=== PATIENT | female | born 1995 | race Caucasian/White ===

== ENCOUNTER 2018-05-03 20:38 | Observation (INO) ==
--- NOTE | 2018-05-03 21:19 | Emergency Department Note ---
Disposition Clinical Impression: Vaginal bleeding, 12 weeks gestation of , Placental abruption in second trimester Disposition: Admitted As Inpatient Condition: Undetermined Referrals: Krissy Rushing DO [Primary Care Provider] - Forms: ED Satisfaction Letter Time of Disposition: 23:21 HPI - General Chief complaint: ED Vaginal Bleeding Stated complaint: "bleeding 17 weeks preg" Time Seen by Provider: 05/03/18 20:57 Source: patient Mode of arrival: ambulatory Limitations: no limitations Nursing Notes Reviewed: Yes Vital Signs Reviewed: Yes - History of Present Illness HPI Narrative: 23-year-old female at 17 weeks gestational , arrives to the emergency Department complaint of bleeding. The patient states that she is unsure if it is coming from her rectum or her vagina. The patient states that she had a previous vaginal bleed during last . She is very concerned. She denies any new abdominal pain or cramping. Patient is resting comfortably in the room at this time. The patient denies any vaginal discharge , hematuria, dysuria. She is complaining of no other complaints at this time. - Related Data Home Medications Medication Instructions Recorded Confirmed Dextroamphetamine/Amphetamine 5 mg PO BID 08/15/16 11/25/16 [Adderall 5 mg Tablet] Norgestimate-Ethinyl Estradiol 1 tab PO DAILY 08/15/16 11/25/16 [Sprintec 28 Day Tablet] Loratadine 05/04/17 Omeprazole 05/04/17 05/04/17 Ventolin Hfa 05/04/17 Previous Rx's Medication Instructions Recorded Promethazine [Phenergan] 25 mg PO Q6HR PRN #10 tablet 01/13/18 Allergies Allergy/AdvReac Type Severity Reaction Status Date / Time No Known Allergies Allergy Verified 02/10/18 16:31 All systems ED: reviewed and negative except as stated. 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: Reports: No TYPEWRITER RIBBON WINDER History LMP comments: - Social History Smoking Status: Never smoker Alcohol use: Reports: none Drug use: Reports: none Physical Exam - General Limitations: no limitations General appearance: alert, in no apparent distress - Head Head exam: atraumatic, normocephalic, normal inspection - Eye Eye exam: Present: normal appearance, PERRL, EOMI - ENT ENT exam: normal exam, normal oropharynx, mucous membranes moist - Neck Neck exam: Present: normal inspection, full ROM, trachea midline - Chest Chest inspection: Present: normal inspection, symmetric chest wall rise - Respiratory Respiratory exam: Absent: respiratory distress - Cardiovascular Cardiovascular exam: Present: regular rate - Abdominal Exam Abdominal exam: Present: soft, Non-Tender. Absent: tenderness, distention, guarding, rebound, rigidity - Female Mechanical Fitter present during exam: Yes External Exam: Present: normal external exam Speculum Exam: Present: normal speculum exam, cervical OS closed, other (Brown clot noted on speculum. Non active bleeding noted or blood noted on examination.). Absent: vaginal discharge, cervical discharge, vaginal bleeding - Extremities Exam Extremities exam: Present: normal inspection, full ROM. Absent: tenderness, pedal edema - Neurological Exam Neurological exam: Present: alert, oriented X3 - Skin Skin exam: Present: warm, dry, intact, normal color Course - Consultations Consultation #1: Patient's ultrasound demonstrates findings concerning for placental abruption. We spoke to TYPEWRITER RIBBON WINDER, Shahnaz, who stated that she will talk with her attending and likely admit the patient to the hospital for further workup and care. The patient was notified and understands circumstances. The patient still is not complaining of any abdominal pain. Time: 23:02 Vital Signs Temperature 98.2 F 05/03/18 20:44 Pulse Rate 94 05/03/18 20:44 Respiratory Rate 16 05/03/18 20:44 Blood Pressure 127/84 05/03/18 20:44 O2 Sat by Pulse Oximetry 98 05/03/18 20:44 Temperature 98.2 F 05/03/18 20:44 Pulse Rate 87 05/03/18 22:43 Respiratory Rate 18 05/03/18 22:43 Blood Pressure 134/57 05/03/18 22:43 O2 Sat by Pulse Oximetry 96 05/03/18 22:43 Oxygen Delivery Oxygen Delivery Room Air OB/Uterine Contractions - Lab Data Lab Results 05/03/18 Range/Units 22:52 Urine Color Yellow (Yellow) Urine Clarity Clear (Clear) Urine pH 6.5 (5.0-8.0) pH Units Ur Specific [place] 1.024 (1.010-1.025) Urine Protein Negative (Neg-Trace) mg/dL Urine Glucose (UA) Normal (Normal) mg/dL Urine Ketones Negative (Negative) mg/dL Urine Blood Trace H (Negative) Urine Nitrite Negative (Negative) Urine Bilirubin Negative (Negative) Urine Urobilinogen Normal (Normal) mg/dL Ur Leukocyte Esterase Negative (Negative) Urine Microscopic RBC 0-3 (0-3) per hpf Urine Microscopic WBC 0-3 (0-3) per hpf Ur Squamous Epith Cells Many H (None-Few) per lpf Urine Bacteria None Seen (None-Few) per hpf Hyaline Casts None Seen (None-Few) per lpf Ur Culture Indicated? NO (NO) Critical Care Time Critical Care Time: No
--- NOTE | 2018-05-03 21:20 | Emergency Department Note ---
START Narrative - START START: I examined this patient and my medical decision-making was reviewed with the Resident Physician. I agree with the documented findings, disposition and treatment plan as described except to the extent set forth below. 23-year-old female presents emergency room for vaginal bleeding versus rectal bleeding. She states she is currently 17 weeks . This is her third with 2 children at home. She admits to bright red blood while sitting on the toilet today and wiping. She did not think it was from the rectum but is unsure. She was concerned with her . She denies abdominal pain. No vaginal discharge. No back pain. No fevers. No other complaints. She denies trauma. Plan: We will do a full pelvic exam to look for blood. If positive. Patient will need a pelvic ultrasound. If negative, this was likely from the rectum as she does have a history of hemorrhoids. She is hemodynamic stable. Looks well. Nontoxic appearing.
[2018-05-03 23:04] LABS: Bilirubin,Urine Negative (Negative); Blood,Urine Trace (Negative); Clarity,Urine Clear (Clear); Color,Urine Yellow (Yellow); Glucose,Urine (UA) Normal (Normal); Ketones,Urine Negative (Negative); Leukocyte Esterase,Urine Negative (Negative); Nitrite,Urine Negative (Negative); PH,Urine 6.5 pH Units (5.0-8.0); Protein,Urine Negative (Neg-Trace); Specific Gravity,Urine 1.024 (1.010-1.025); Urobilinogen,Urine Normal (Normal)
[2018-05-03 23:07] LABS: Bacteria,Urine None Seen per hpf (None-Few); Hyaline Casts,Urine None Seen per lpf (None-Few); RBC,Urine 0-3 per hpf (0-3); Squamous Epithelial Cell,Urine Many per lpf (None-Few); WBC,Urine 0-3 per hpf (0-3)
[2018-05-04 04:43] LABS: Basophils % 0.3 %; Eosinophils # 0.1 K/mcL (0.0-0.6); Eosinophils % 1.1 %; Hematocrit 33.8 % (35.3-44.9); Hemoglobin 11.2 g/dL (11.5-15.4); Immature Granulocytes % 0.2 % (0-4); Lymphocytes # 2.9 K/mcL (0.6-4.6); Lymphocytes % 29.6 %; Mean Corpuscular HGB Conc 33.1 g/dL (31.6-35.5); Mean Corpuscular Hemoglobin 29.1 pg (28.0-33.3); Mean Corpuscular Volume 87.8 fL (83.0-100.0); Mean Platelet Volume 12.1 fL (9.4-12.4); Monocytes # 0.6 K/mcL (0.0-1.3); Neutrophils # 6.2 K/mcL (1.6-8.9); Platelet Count 177 K/mcL (140-400); Red Blood Count 3.85 M/mcL (3.82-4.97); Red Cell Distribution Width 13.8 % (11.5-14.5); Segmented Neutrophils % 62.8 %
[2018-05-04 07:58] VITALS: BP 105/72
--- NOTE | 2018-05-04 08:29 | Discharge Summary ---
Date of Encounter: 05/04/18 Time of Encounter: 08:30 - Discharge Diagnosis (1) 18 weeks gestation of Priority: Primary Status: Acute (2) Placental abruption in second trimester Priority: Primary Status: Acute Comments: Pt with thus far uncomplicated presented with vaginal bleeding like a period when she voided. No recent trauma or SI. She had scant spotting once first trimester, but none since then. U/S last evening showed no previa but two small separations c/w marginal abruption. Bleeding has now stopped and her abdomen is nonh-tender. 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 I advised off work today and tomorrow then she may return per her request on light duty and Thursday. She should call for worsening pain or bleeding. - Discharge Medications Home Medications: Loratadine 1 tab PO DAILY 05/04/17 [History] Omeprazole 40 mg PO DAILY 05/04/17 [History] Promethazine [Phenergan] 25 mg PO Q6HR PRN #10 tablet 01/13/18 [Rx] Vit #49/Iron Fum/FA [Mini Tablet] 1 tab PO DAILY 05/04/18 [ History] Allergies/Adverse Reactions: 3 Allergy/AdvReac Type Severity Reaction Status Date / Time No Known Allergies Allergy Verified 02/10/18 16:31 Data Procedures and tests throughout hospitalization: Laboratory Tests 05/04/18 04:18 WBC 9.9 RBC 3.85 Hgb 11.2 L Hct 33.8 L MCV 87.8 MCH 29.1 MCHC 33.1 RDW 13.8 Plt Count 177 MPV 12.1 Immature Gran % 0.2 Seg Neutrophils % 62.8 Lymphocytes % 29.6 Monocytes % 6.0 Eosinophils % 1.1 Basophils % 0.3 Neutrophils # 6.2 Lymphocytes # 2.9 Monocytes # 0.6 Eosinophils # 0.1 Basophils # 0.0 Labs on day of discharge: Labs from last 24 hours 05/04/18 04:18 WBC 9.9 RBC 3.85 Hgb 11.2 L Hct 33.8 L MCV 87.8 MCH 29.1 MCHC 33.1 RDW 13.8 Plt Count 177 MPV 12.1 Immature Gran % 0.2 Seg Neutrophils % 62.8 Lymphocytes % 29.6 Monocytes % 6.0 Eosinophils % 1.1 Basophils % 0.3 Neutrophils # 6.2 Lymphocytes # 2.9 Monocytes # 0.6 Eosinophils # 0.1 Basophils # 0.0 - Impressions vaginal bleeding 18 weeks EGA - Additional Comments Pt doing well without abdominal pain and only scant bleeding this morning. Date of admission: 05/03/18 23:50 Primary care physician: Weston Yeager - Patient Status Disposition: Home, Self-Care Condition: Good Functional capacity at discharge: independent ambulation Overall status at discharge: patient is progressing back to baseline - Discharge Instructions Follow Up With: Jean-Pierre Rooney DO [Partnered Physician] - Additional Instructions: Pt to be off of work today and tomorrow and light duty until seen by Dr. Rooney on Thursday. She should call for worsening pain or heavier bleeding. She should have u/s to check placenta with visit on Thursday. Hospital Course MECHANICAL METER TESTER Time Attestation: Total time spent providing and/or coordinating discharge services: Exam - Constitutional Vitals: Temp Pulse Resp BP Pulse Ox 98.4 F 85 16 105/72 99 05/04/18 07:57 05/04/18 07:57 05/04/18 07:57 05/04/18 07:57 05/04/18 07:57 General appearance IM: A&O X 3, no acute distress - Respiratory Respiratory exam: Present: CTAB - Cardiovascular Cardiovascular exam IM: Present: RRR - GI/Abdominal GI/Abdominal exam IM: normal bowel sounds - Other Additional findings: Abdomen non-tender - VTE Reasons for not Prescribing Prophylaxis: Treatment not Indicated - Low risk for VTE
== END 2018-05-04 09:30 | disposition home or self-care (01) ==
LOC: EMEROO 20:38 → 1NENUOBS 20:38
PROVIDERS: ADMIT Advanced Practice Midwife; ATTEND Advanced Practice Midwife

== ENCOUNTER 2018-10-06 08:00 | Inpatient (IN) ==
[2018-10-06] MEDS ORDERED: Metoclopramide 10 MG/2 ML VIAL IVP PRN (08:09)
[2018-10-06] MEDS ORDERED: Lidocaine 1% 20 ML MDV ID PRN (08:09)
[2018-10-06] MEDS ORDERED: *HR* Nalbuphine 10 MG/ML AMPUL IVP PRN (08:09)
[2018-10-06] MEDS ORDERED: Ondansetron 4 MG/2 ML VIAL IVP PRN (08:09)
[2018-10-06] MEDS ORDERED: Naloxone 0.4 MG/ML INJ IVP PRN (08:09)
[2018-10-06] MEDS ORDERED: Famotidine 20 MG/2 ML VIAL IVP PRN (08:09)
[2018-10-06] MEDS ORDERED: miSOPROStol 25 MCG TABLET VG ONE (08:20)
[2018-10-06 09:28] LABS: Basophils % 0.2 %; Eosinophils # 0.1 K/mcL (0.0-0.6); Eosinophils % 0.8 %; Hematocrit 33.6 % (35.3-44.9); Hemoglobin 10.9 g/dL (11.5-15.4); Immature Granulocytes % 0.2 % (0-4); Lymphocytes # 1.7 K/mcL (0.6-4.6); Lymphocytes % 20.8 %; Mean Corpuscular HGB Conc 32.4 g/dL (31.6-35.5); Mean Corpuscular Hemoglobin 27.5 pg (28.0-33.3); Mean Corpuscular Volume 84.8 fL (83.0-100.0); Mean Platelet Volume 12.7 fL (9.4-12.4); Monocytes # 0.4 K/mcL (0.0-1.3); Monocytes % 4.8 %; Neutrophils # 6.1 K/mcL (1.6-8.9); Platelet Count 177 K/mcL (140-400); Red Blood Count 3.96 M/mcL (3.82-4.97); Red Cell Distribution Width 14.9 % (11.5-14.5); Segmented Neutrophils % 73.2 %
[2018-10-06] MEDS: Ringers Solution, Lactated 1,000 ML IVC SCH ×2 (09:44→14:03)
[2018-10-06] MEDS ORDERED: Oxytocin 20 units/ LR 1000 mL 20 UNIT/1,000 ML BAG IVC SCH ×2 (09:45→18:53)
[2018-10-06 09:48] LABS: Amphetamine Screen,Urine Negative ng/mL (Cutoff=1000); Barbiturate Screen,Urine Negative ng/mL (Cutoff=200); Benzodiazepines Screen,Urine Negative ng/mL (Cutoff=200); Cannabinoid Screen,Urine Negative ng/mL (Cutoff = 50); Cocaine Screen,Urine Negative ng/mL (Cutoff= 300); Opiate Screen,Urine Negative ng/mL (Cutoff=300); Phencyclidine Screen,Urine Negative ng/mL (Cutoff=25)
--- NOTE | 2018-10-06 10:11 | Anesthesia Evaluation PreOp ---
Date of Encounter: 10/06/18 Time of Encounter: 10:09 - Past History Planned Operation: avery Cardiac History: Denies any Significant Hx Pulmonary History: Asthma PURCHASING ASSISTANT History: Denies Any Significant HX Other Medical History: GERD, Other (sepression,anxiety, narcolepsy) Anesthesia History: No Prior Anesthetic Complications, Past Anesthesia (CLEx2, abdulaziz, Knee x2, BMT) : Yes Test: Positive Alcohol Use: none Drug use: none Medications and Allergies Loratadine 1 tab PO DAILY 05/04/17 [History] Omeprazole 40 mg PO DAILY 05/04/17 [History] Vit #49/Iron Fum/FA [Mini Tablet] 1 tab PO DAILY 05/04/18 [History] Allergy/AdvReac Type Severity Reaction Status Date / Time No Known Allergies Allergy Verified 02/10/18 16:31 - Meds/Allergy Pre-op Review Medications Reviewed: Yes Allergies Reviewed: Yes Beta Blockers on Current Med List: No Anesthesia Results - Labs 10/06/18 09:05 Anesthesia Exam 120/75 89 16 fht 136 Height: 5'5" Weight: 105 k NPO (# of Hours): 2 Pain Scale: 3 Pain Scale Used: Numeric (1 - 10) - HEENT Pupil (Motor): Pupils equal Mallampati: II Teeth: Normal Oral Opening: Greater than 3 - PURCHASING ASSISTANT LOC: Oriented PURCHASING ASSISTANT Motor: Normal RUE, Normal LUE, Normal RLE, Normal LLE, Normal Face PURCHASING ASSISTANT Sensory: Normal: RUE, LUE, RLE, LLE, Face - Cardiac Rhythm: Regular Murmur: None - Pulmonary Breath Sounds: bilateral Clear Respiratory Effort: Symmetrical Anesthesia Assess/Plan ASA Score: 2 Level of consciousness: Cooperative Anesthetic Plan: Epidural Autologous Blood: No Monitoring Plan: Standard Monitors Recovery Plan: Other (risks discussed, questions answered, consented)
[2018-10-06] MEDS ORDERED: *HR* FentaNYL (PF) 100 MCG/2 ML VIAL EP ONE (10:13)
[2018-10-06] MEDS ORDERED: *HR* Ropivacaine/PF 0.2% 20 ML VIAL EP ONE (10:13)
[2018-10-06] MEDS ORDERED: Epidural Premix (fent/bupiv) 110 ML EP SCH (10:15)
--- NOTE | 2018-10-06 10:26 | OB/GYN History & Physical ---
Date of Encounter: 10/06/18 Time of Encounter: 09:56 Assessment and Plan (1) 39 weeks gestation of Current visit: Yes Status: Acute (2) Type O blood, Rh positive Current visit: Yes Status: Acute (3) Intrauterine Current visit: Yes Status: Acute Admit to L&D for induction of labor Start Pitocin and increased per policy to adequate contraction pattern Labs-CBC and clot to hold Continuous electronic monitoring Pain management plan is epidural-may have upon request GBS negative-no prophylaxis needed Anticipate vaginal delivery Dr. Robertson is OB on-call and is available as needed (4) Intact amniotic membranes during in third trimester Current visit: Yes Status: Acute History of Present Illness Chief complaint: elective iol HPI: Ms. Aguirre is a 23 year old female at 39 weeks 4 days gestation with an estimated date of 10/09/18 dated by LMP. She presents for planned elective induction of labor. Her has been uncomplicated. She is followed by Dr. Rooney. records are available electronically and have been reviewed. Labs: O+ GBS- HIV- Hep B- T. Palladium - GC/CL- Rubella immune Varicella immune Past Med Surg Social Fam HX - Past Medical History Medical history: asthma, GERD Additional medical history: Narcolepsy Psychiatric history: anxiety, depression - Past Surgical History Surgical History: cholecystectomy Additional surgical history: Right and left knee scopes 2009. BMT 2010 - Social History Smoking Status: Never smoker Smokeless Tobacco Status: No Alcohol use: none Drug use: none - Family History Mother Living Status: Still Living Hx Family Cardiac Disorders: Yes (HTN) Hx Family Respiratory Disorders: Yes (Sleep Apnea) Obstetrical History - Pregnancies : 3 Para: 2 Term: 2 ( # 1: vaginal delivery, full term,male, 8lbs 2 oz, Ryan; # 2: JULY 08, 2014 8LBS 1OZ VAGINAL DELIVERY DAISY DELIVERED) : 0 Ab's: 0 Livin Medications and Allergies Loratadine 1 tab PO DAILY 05/04/17 [History] Omeprazole 40 mg PO DAILY 05/04/17 [History] Vit #49/Iron Fum/FA [Mini Tablet] 1 tab PO DAILY 05/04/18 [History] Allergy/AdvReac Type Severity Reaction Status Date / Time No Known Allergies Allergy Verified 02/10/18 16:31 Review of System OB All systems PM: reviewed and no additional remarkable complaints except as stated Exam - Constitutional Constitutional: well developed, well nourished, no acute distress, average body habitus - HEENT HEENT: Normocephaly, Mucus Membranes Moist - Neck Neck exam: full ROM - Lungs Respiratory exam: CTAB - Cardiovascular Cardiovascular exam: RRR, +S1, +S2 - Breasts Breast: bilateral: normal - Abdomen Abdomen: Present: bowel sounds normal, gravid, non tender - Extremities Extremities exam: normal capillary refill, normal inspection, radial pulses palpable and symmetrical - Vulva Vulva: bilateral: normal - Vagina Vagina: Present: normal moisture - Cervix Dilation: 4 Effacement: 70 Station: -2 - Uterus Uterus exam: Present: normal size, normal contour - Adnexa Adnexa: bilateral: normal - Anus/Rectum Anus/Rectum: Present: normal perianal skin Results Result Diagrams: 10/06/18 09:05 Abnormal lab results Hgb 10.9 g/dL (11.5-15.4) L 10/06/18 09:05 Hct 33.6 % (35.3-44.9) L 10/06/18 09:05 MCH 27.5 pg (28.0-33.3) L 10/06/18 09:05 RDW 14.9 % (11.5-14.5) H 10/06/18 09:05 MPV 12.7 fL (9.4-12.4) H 10/06/18 09:05 All other labs normal. - VTE Reasons for not Prescribing Prophylaxis: Treatment not Indicated - Low risk for VTE
--- NOTE | 2018-10-06 13:23 | OB Labor Progress Note ---
Date of Encounter: 10/06/18 Time of Encounter: 13:21 Labor Progress Note - Subjective Subjective: Rates contractions /10. - Cervix Cervix: 6/70/-2 - Heart Tones Heart Tones: Baseline 125 Moderate variability Accelerations present 15x15 No decelerations FHR Category I - [place]: Contractions every 2-3 minutes and palpate strong - Interventions Interventions: SVE - Plan Plan: Continue IOL management Continue pitocin augmentation May have epidural upon request Anticipate POC per consult with Dr. Robertson
[2018-10-06] MEDS ORDERED: *HR* FentaNYL (PF) 100 MCG/2 ML VIAL ONE (13:38)
[2018-10-06] MEDS ORDERED: Lidocaine -MPF 2% 5 ML VIAL ONE (13:38)
[2018-10-06] MEDS ORDERED: *HR* Ropivacaine/PF 0.2% 20 ML VIAL ONE (13:38)
--- NOTE | 2018-10-06 14:05 | Anesthesia Procedures ---
Addendum entered and electronically signed by Luis Armando Bridges CRNA 10/06/18 18:23: Infant Delivery Date: 10/06/18 Delivery Time: 15:59 Original Note: Date of Encounter: 10/06/18 Time of Encounter: 14:03 Procedures: Anesthesia - Epidural/Spinal Patient ID/Chart reviewed: Yes Patient examined: Yes OB Eval: Gestational age: 39 OB Eval: : 3 OB Eval: Hx Para: 2 OB Eval: Dilated at (cm): 6 OB Eval: Contractions: Non-stressed pattern Consent Obtained: Yes Supplemental Oxygen: None/Room Air Site Prep: Aseptic Technique, Sterile prep and drape, 0.5% Chlorhexidine/Alcohol Patient position: upright Local Anesthetic: Lidocaine 1% Amount of Local Anesthetic used: 3 Touhy Needle Gauge: 18 Touhy Needle Depth (cm): 7 Catheter Depth at Skin (cm): 15 Test Dose (1.5% Lido + Epi): Volume given (mls): 3 Test Dose Result: Negative Loading Dose: Fentanyl (mcg): 100 Loading Dose: Other: ropivicaine 0.2% 10cc Infusion Rate (mls/hr): 15 (pcea 5 cc q30") Catheter Secured in Place: Tegaderm Interspace Used: L2-L3 Loss of Resistance (BRANDI): Yes Blood: No CSF: No Paresthesia: No Procedure: septic, silas well, VSS, effective Vitals + FHT's: 108/78 88 fht 134
--- NOTE | 2018-10-06 14:56 | OB Labor Progress Note ---
Date of Encounter: 10/06/18 Time of Encounter: 14:54 Labor Progress Note - Subjective Subjective: Pt comfortable with epidural. - Cervix Cervix: 8/70/-2 - Heart Tones Heart Tones: FHR Category I - [place]: Contractions every 2-3 minutes and palpate strong - Interventions Interventions: SVE AROM - small amount clear fluid Position change deep lateral right - Plan Plan: Continue IOL Position changes until complete Anticipate
--- NOTE | 2018-10-06 16:28 | OB/GYN Procedure Note ---
Delivery - Delivery Date: 10/06/18 Provider: Shahnaz Bal Intrapartum events: meconium Delivery induction: oxytocin Delivery augmentation: rupture of membranes Delivery monitor: external FHT, external uterine Anesthesia: epidural Quantitated Blood Loss: 150 - (s) A Delivery Date: 10/06/18 Delivery Time: 15:59 Presentation: vertex Position: OA Route of delivery: Gender: Male Viability: Viable Pounds: 8 Ounces: 10 Weight Gram: 3.9 kg at 1 minute: 7 at 5 mins: 9 Shoulder Dystocia: not encountered Specimens collected: cord blood Placenta: spontaneous Cord: true knot, 3 umbilical vessels - Repair Episiotomy: none Laceration Description: Superficial - Complications Delivery complications: none Delivery comments: This is a 23 year old G3 now P3 who was admitted for elective induction of labor. She progressed with Pitocin augmentation and AROM to the second stage of labor. She pushed for about 15 minutes. She delivered a viable male , "[place]", OA over an intact perineum. A nuchal cord was not identified. A shoulder dystocia was not encountered. The was placed on the maternal abdomen and allowed to transition spontaneously. The cord was double clamped by ammonium nitrate neutralizer after pulsations ceased and cut by the patient. scores were 7 at 1 minute and 9 at 5 minutes. The infant weighed 8 lbs. 10 oz. (3900 g). The placented delivered (Shaikh) spontaneously, intact with a 3-vessel cord. Inspection revealed no cervical, sidewall, or vaginal tears. The uterus was firm with no active bleeding. EBL was 150 mL. Placenta and umbilical artery blood gases were not sent. There were no complications during the procedure. Mom and baby are skin to skin following delivery. - Disposition Mom disposition: stable in LDR disposition: stable in LDR
[2018-10-06] MEDS ORDERED: Acetaminophen 325 MG TABLET PO PRN (18:53)
[2018-10-06] MEDS: Ibuprofen 600 MG TABLET PO PRN (19:44)
[2018-10-07] MEDS: Ibuprofen 600 MG TABLET PO PRN ×3 (01:50→13:37)
[2018-10-07 07:47] VITALS: BP 102/70
[2018-10-07] MEDS ORDERED: Prenatal Vit/FA 1 EACH TABLET PO SCH (09:00)
--- NOTE | 2018-10-07 10:23 | Discharge Summary ---
Date of Encounter: 10/07/18 Time of Encounter: 10:20 - Discharge Diagnosis (1) Vaginal delivery Priority: Primary Status: Acute Comments: continue routine care discharge home today follow up with Dr. Alaniz if 4-6 weeks (2) Breast feeding status of mother Priority: Secondary Status: Acute Comments: support prn - Discharge Medications Prescriptions: Ibuprofen [Motrin] 600 mg PO Q6HR PRN #60 tablet PRN Reason: Cramping Breast Pump [BREAST PUMP] 1 each .ROUTE AD #1 each Home Medications: Vit #49/Iron Fum/FA [Mini Tablet] 1 tab PO DAILY 05/04/18 [History] Breast Pump [BREAST PUMP] 1 each .ROUTE AD #1 each 10/07/18 [Rx] Ibuprofen [Motrin] 600 mg PO Q6HR PRN #60 tablet 10/07/18 [Rx] Allergies/Adverse Reactions: Allergy/AdvReac Type Severity Reaction Status Date / Time No Known Allergies Allergy Verified 02/10/18 16:31 Data Procedures and tests throughout hospitalization: Laboratory Tests 10/06/18 10/06/18 10/06/18 09:05 09:05 09:05 WBC 8.3 RBC 3.96 Hgb 10.9 L Hct 33.6 L MCV 84.8 MCH 27.5 L MCHC 32.4 RDW 14.9 H Plt Count 177 MPV 12.7 H Immature Gran % 0.2 Seg Neutrophils % 73.2 Lymphocytes % 20.8 Monocytes % 4.8 Eosinophils % 0.8 Basophils % 0.2 Neutrophils # 6.1 Lymphocytes # 1.7 Monocytes # 0.4 Eosinophils # 0.1 Basophils # 0.0 Urine Opiates Screen Negative Ur Barbiturates Screen Negative Ur Phencyclidine Scrn Negative Ur Amphetamines Screen Negative U Benzodiazepines Scrn Negative Urine Cocaine Screen Negative U Marijuana (THC) Screen Negative Ur Drug Screen Interp See Below Hep Bs Antigen Nonreactive Date of admission: 10/06/18 08:05 Primary care physician: Weston Yeager Consults: 10/06/18 18:53 Consult to Full Service Supervisor [CONS] Routine Comment: Vaginal delivery, consult needed Discharging clinician: Tamara Oneil Anticipated date of discharge: 10/07/18 - Patient Status Disposition: Home, Self-Care Condition: Good - Discharge Instructions Follow Up With: Krissy Rushing DO [Primary Care Provider] - Nadine Alaniz MD [Partnered Physician] - - Diet and Activity Activity: increase activity as tolerated Diet: regular diet Hospital Course Reason for admission: induction of labor Delivery: Episiotomy: none Laceration: none Other procedures: none complications: none Discharge diagnosis: IUP at term delivered baby: male (breast feeding) Time Attestation: Total time spent providing and/or coordinating discharge services: Time Spent: Less than 30 minutes Exam - Constitutional Vitals: Temp Pulse Resp BP Pulse Ox 98.3 F 91 14 102/70 97 10/07/18 07:45 10/07/18 07:45 10/07/18 07:45 10/07/18 07:45 10/07/18 07:45 General appearance IM: A&O X 3, pleasant, answers questions appropriately - Respiratory Respiratory exam: Present: CTAB - Cardiovascular Cardiovascular exam IM: Present: RRR, +S1, +S2 - GI/Abdominal GI/Abdominal exam IM: normal bowel sounds - Uterine Tone: Firm Uterus Position: At Umbilicus, Midline - Neurological Exam Neurological exam: alert, oriented X3, reflexes normal
[2018-10-07] MEDS ORDERED: Lanolin 7 G OINT...G. TP PRN (13:31)
== END 2018-10-07 18:25 | disposition home or self-care (01) | DRG 560 ==
LOC: 1NENULAB 08:05 → 1NENUOBS 18:40
PROVIDERS: ADMIT Obstetrics & Gynecology; ATTEND Obstetrics & Gynecology